=== PATIENT | female | born 1965 | race Hispanic/Latino ===

== ENCOUNTER → 2018-10-02 | Day surgery (SDC) | payer BC ==
[~2018-10-02] MED LIST: FENTANYL CITRATE/PF 100MCG/2 ML INJ ONE; HYOSCYAMINE SULFATE 0.5 MG/ML INJ ONE; MIDAZOLAM HCL 2 MG/2 ML VIAL ONE; PROPOFOL IV EMULSION 10 MG/ML 50 ML VIAL ONE
--- OUTSIDE RECORDS SUMMARY | 2018-10-02 07:14 | XMS REPORT | Encounter Summary ---
Author Organization Unknown Address [address] [place] [address] Phone [phone] Reason for Visit Medical Complaint Instructions 1. Dysuria painful urination (dysuria): care instructions urinalysis, dipstick culture, urine phenazopyridine 200 mg tablet sulfamethoxazole 800 mg-trimethoprim 160 mg tablet Discussion Note Pt is in NAD; Verbalizes understanding of all instructions with no questions at this time. Plan of Care Patient Instructions Recommend proper hydration and frequent urination. Avoid douching, Recommend urinating after sexual intercourse. Recommend wipe front to back after urinating. Avoid using tubs. Take medications as prescribed. Return to clinic or follow up with your PCP within 2-3 days if symptoms worsen as discussed. Reminders Provider Appointments None recorded. Lab Urinalysis, Dipstick 10/02/2017 [facility] Culture, Urine 10/02/2017 [facility] Referral None recorded. Procedures None recorded. Surgeries None recorded. Imaging None recorded. Medications Name Start Date phenazopyridine 200 mg tablet Take 1 tablet 3 times a day by oral route as needed for dysuria for 2 days. for pain and discomfort sulfamethoxazole 800 mg-trimethoprim 160 mg tablet Take 1 tablet every 12 hours by oral route as directed for 5 days. Medications Administered None recorded. Vitals Height Weight BMI Blood Pressure 5 ft 7 in 147 lbs 23 kg/m2 110/70 mm[Hg] Lab Results Date Name Specimen Result Interpretation Description Value Range Status Address Urinalysis, Dipstick Color : Yellow [facility]: [address] [place] [address] Clarity : Clear [facility]: [address] [place] [address] Leukocytes : Negative [facility]: [address] [place] [address] Nitrites : Negative [facility]: [address] [place] [address] Urobilinogen : Normal [facility]: [address] [place] [address] Protein : Negative [facility]: [address] [place] [address] Ph : 6.5 [facility]: [address] [place] [address] Blood : Negative [facility]: [address] [place] [address] Specific [place] : 1.000 [facility]: [facility] Ketones : Negative [facility]: [facility] Bilirubin : Negative [facility]: [facility] Glucose Negative [facility]: 9 [facility] Allergies Code Code System Name Reaction Severity Status Onset NKDA Problems Name Status Onset Date Source Urinary Tract Infectious Disease Active Encounter Sciatica Active Encounter Procedures Date Name Performed by 08/20/2008 Hysterectomy Information not available Tubal Ligation Information not available Vaccine List None recorded. 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 History of Present Illness [id number] Reported By: Patient HPI: Location: urethra. Quality: pain. Severity: worsening, moderate. Duration: constant. Onset/Timing: worse, gradual. Context: no known exposure to STD, no prior history of STDs, sexually active, LMPhysterectomy, heterosexual, vaginal intercourse, history of urine cultures/antibiotic treatment, wipes anterior to posterior, voids after intercourse. Modifying factors nothing makes it worse. Associated Symptoms: no fever/chills, no flank pain, no jaundice, no blood in the urine, no vaginal discharge, no urgency, no blisters on genitals, no rash on genitals, no muscle aches, no headache, pain during urination, urinary frequency Review of Systems:ROS as noted in the HPI Review of Systems Basic Reported By: Patient Physical Exam Adult Basic, Adult Female Complete Reported By: Patient Constitutional: General Appearance: healthy-appearing, well-nourished, well-developed. Level of Distress: NAD. Ambulation: ambulating normally Psychiatric: Mental Status: active and alert. Orientation: to time, to place, to person Eyes: Lids and Conjunctivae: non-injected, no pallor; no periorbital edema Neck: Neck: supple. Lymph Nodes: no cervical LAD Lungs: Respiratory effort: no dyspnea, no tachypnea, no use of accessory muscles, no intercostal retractions. Auscultation: breath sounds normal Cardiovascular: Heart Auscultation: RRR, no murmurs Musculoskeletal:: Extremities: no edema Neurologic: Gait and Station: normal gait Abdomen: Bowel Sounds: normal. Inspection and Palpation: soft, non-distended, no tenderness, no guarding, no rebound tenderness, no masses, no CVA tenderness. Liver: non-tender, no hepatomegaly. Spleen: non-tender, no splenomegaly. Hernia: none palpable
--- OUTSIDE RECORDS SUMMARY | 2018-10-02 07:14 | XMS REPORT | Encounter Summary ---
Author Organization Unknown Address [address] [place] [address] Phone [phone] Reason for Visit Medical Complaint Instructions 1. Urinary tract infectious disease urinary tract infection in women: care instructions Bactrim DS 800 mg-160 mg tablet culture, urine urinalysis, dipstick 2. Immunization due Discussion Note: None recorded. Plan of Care Patient Instructions Drink plenty of water and wear cotton underwear. Please finish all antibiotics, even if you are feeling better. This prevents the infection from coming back. Please seek care or return to [facility] if symptoms do not resolve in 1 week. Reminders Provider Appointments None recorded. Lab Culture, Urine 08/15/2018 [facility] Urinalysis, Dipstick 08/15/2018 [facility] Referral None recorded. Procedures None recorded. Surgeries None recorded. Imaging None recorded. Medications Name Start Date Bactrim DS 800 mg-160 mg tablet Take 1 tablet twice a day by oral route for 5 days. Medications Administered None recorded. Vitals Height Weight BMI Blood Pressure 5 ft 7 in 150 lbs 23.5 kg/m2 110/70 mm[Hg] Lab Results Date Name Specimen Result Interpretation Description Value Range Status Address Urinalysis, Dipstick Color : Yellow [facility]: [address] [place] [address] Clarity : Clear [facility]: [address] [place] [address] Leukocytes : Trace [facility]: [address] [place] [address] Nitrites : Positive [facility]: [address] [place] [address] Urobilinogen : Normal [facility]: [address] [place] [address] Protein : Trace [facility]: [address] [place] [address] Ph : 5.0 [facility]: [address] [place] [address] Blood : Hemolyzed Trace [facility]: [address] [place] [address] Specific [place] : 1.015 [facility]: [address] [place] [address] Ketones : Negative [facility]: [address] [place] [address] Bilirubin : Negative [facility]: [address] [place] [address] Glucose Negative [facility]: [address] [place] [address] Allergies Code Code System Name Reaction Severity Status Onset NKDA Problems Name Status Onset Date Source Sciatica Active Encounter Procedures Date Name Performed by 08/20/2008 Hysterectomy Information not available Tubal Ligation Information not available Vaccine List None recorded. 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 History of Present Illness [id number] Reported By: Patient HPI: Duration: started 4 days. Onset/Timing: worse. Context: no known exposure to STD, no prior history of STDs, sexually active. Associated Symptoms: no fever/chills, no flank pain, no jaundice, no blood in the urine, no vaginal discharge, no blisters on genitals, no rash on genitals, pain during urination, burning sensation during urination, urgency, hesitancy, urinary frequency, feeling of incomplete emptying of bladder Review of Systems:ROS as noted in the HPI Review of Systems Basic Reported By: Patient Physical Exam Adult Basic, Adult Female Complete, 14-21 Yr Females Reported By: Patient Constitutional: General Appearance: healthy-appearing, well-nourished, well-developed. Level of Distress: NAD. Ambulation: ambulating normally Lungs: Respiratory effort: no dyspnea, no tachypnea, no use of accessory muscles, no intercostal retractions. Auscultation: breath sounds normal, clear to auscultation, no wheezing, no rales/crackles, no rhonchi, no retractions Cardiovascular: Heart Auscultation: RRR, no murmurs, no gallops, no rub, normal femoral pulse. Rate and rhythm: regular Abdomen: Bowel Sounds: normal. Inspection and Palpation: soft, non-distended, no tenderness, no guarding, no rebound tenderness, no masses, no CVA tenderness. Liver: non-tender, no hepatomegaly. Spleen: non-tender, no splenomegaly. Hernia: none palpable. Palpation: (normal) bowel sounds
--- OUTSIDE RECORDS SUMMARY | 2018-10-02 07:14 | XMS REPORT | Encounter Summary ---
Author Organization Unknown Address [address] [place] [address] Phone [phone] Reason for Visit Medical Complaint Instructions 1. Urinary tract infectious disease urinalysis, dipstick urinary tract infection in women: care instructions Bactrim DS 800 mg-160 mg tablet culture, urine 2. Blood in urine blood in the urine: care instructions Discussion Note Pt is in NAD; Verbalizes understanding of all instructions with no questions at this time. Plan of Care Patient Instructions Recommend proper hydration and frequent urination. Avoid douching, Recommend urinating after sexual intercourse. Recommend wipe front to back after urinating. Avoid using tubs. Take medications as prescribed. Follow up with your PCP or urologist within 2-3 days if symptoms worsen as discussed or if recurrence. In case of an emergency call 911 or go to nearest ER. Reminders Provider Appointments None recorded. Lab Urinalysis, Dipstick 04/08/2018 [facility] Culture, Urine 04/08/2018 [facility] Referral None recorded. Procedures None recorded. Surgeries None recorded. Imaging None recorded. Medications Name Start Date Bactrim DS 800 mg-160 mg tablet Take 1 tablet every 12 hours by oral route as directed for 7 days. Medications Administered None recorded. Vitals Height Weight BMI Blood Pressure 5 ft 7 in 140 lbs 21.9 kg/m2 110/68 mm[Hg] Lab Results Date Name Specimen Result Interpretation Description Value Range Status Address 04/08/2018 Urinalysis, Dipstick Color : Yellow [facility]: [address] [place] [address] Clarity : Clear [facility]: [address] [place] [address] Leukocytes : Small [facility]: [address] [place] [address] Nitrites : Negative [facility]: [address] [place] [address] Urobilinogen : Normal [facility]: [address] [place] [address] Protein : Negative [facility]: [address] [place] [address] Ph : 5.0 [facility]: [address] [place] [address] Blood : Moderate [facility]: [address] [place] [address] Specific [place] : 1.025 [facility]: [facility] Ketones : Negative [facility]: [facility] Bilirubin : Negative [facility]: 9 [facility] Glucose Negative [facility]: [facility] Allergies Code Code System Name Reaction Severity Status Onset NKDA Problems Name Status Onset Date Source Blood in Urine Active 04/08/2018 Urinary Tract Infectious Disease Active Encounter Sciatica Active Encounter Procedures Date Name Performed by 08/20/2008 Hysterectomy Information not available Tubal Ligation Information not available Vaccine List None recorded. Social History Smoking Status Never Smoker Past Encounters 04/08/2018 Urinary Tract Infectious Disease; Blood in Urine Nirali Sanchez, [facility]-C: [address] [place] [address], Ph. History of Present Illness [id number] Reported By: Patient HPI: Location: abdomen, urethra. Quality: pain, pressure, burning. Severity: worsening, moderate. Duration: constant. Onset/Timing: worse, gradual. Context: no known exposure to STD, no prior history of STDs, sexually active, heterosexual, vaginal intercourse, history of urine cultures/antibiotic treatment, wipes anterior to posterior, voids after intercourse. Modifying factors nothing makes it worse. Associated Symptoms: no fever/chills, no flank pain, no jaundice, no blood in the urine, no vaginal discharge, no blisters on genitals, no rash on genitals, no muscle aches, no headache, pain during urination, burning sensation during urination, urgency, urinary frequency Review of Systems Basic Reported By: Patient Constitutional: Constitutional: no fever Eyes: Eyes: no eye complaints [id number]-Yswzy-Throat: Ears: no ear complaints. Nose: no nose/sinus problems. Mouth/Throat: no sore throat, no bleeding gums, no mouth complaints, no teeth problems Cardiovascular: Cardiovascular: no chest pain, no shortness of breath, no known heart murmur Respiratory: Respiratory: no cough, no wheezing, no shortness of breath Gastrointestinal: Gastrointestinal: no abdominal pain, no vomiting / diarrhea Genitourinary: Genitourinary: no discharge, dysuria, urinary urgency; urinary frequency Musculoskeletal: Musculoskeletal: no muscle aches, no muscle weakness, no arthralgias/joint pain, no back pain Skin: Skin: no abnormal / changing mole, no jaundice, no rashes Neurologic: Neurologic: no loss of consciousness, no weakness, no numbness, no seizures, no dizziness, no headaches Physical Exam Adult Basic, Adult Female Complete [...] normal. Inspection and Palpation: soft, non-distended, no guarding, no rebound tenderness, no masses, no CVA tenderness, suprapubic tenderness. Hernia: none palpable
--- OUTSIDE RECORDS SUMMARY | 2018-10-02 07:14 | XMS REPORT | Continuity of Care Document ---
Author Author Karina victoria [facility] Interface Address Unknown Phone Unavailable Problems Problem Status Onset Date Classification Date Reported Comments Source Immunization due 08/15/2018 Diagnosis 08/15/2018 [facility] Urinary tract infectious disease 08/15/2018 Diagnosis 08/15/2018 [facility] Blood in urine 04/08/2018 Diagnosis 04/08/2018 [facility] Blood in Urine 04/08/2018 Problem 04/08/2018 [facility] Dysuria 10/02/2017 Diagnosis 10/03/2017 [facility] Urinary Tract Infectious Disease Problem 04/08/2018 [facility] Sciatica Problem 08/15/2018 [facility] Medications Medication Details Route Status Patient Instructions Ordering Provider Order Date Source Phenazopyridine hydrochloride 200 MG Oral Tablet phenazopyridine 200 mg tablet Take 1 tablet 3 times a day by oral route as needed for dysuria for 2 days. for pain and discomfort Active [facility] Sulfamethoxazole 800 MG / Trimethoprim 160 MG Oral Tablet sulfamethoxazole 800 mg-trimethoprim 160 mg tablet Take 1 tablet every 12 hours by oral route as directed for 5 days. Active [facility] Sulfamethoxazole 800 MG / Trimethoprim 160 MG Oral Tablet [Bactrim] Bactrim DS 800 mg-160 mg tablet Take 1 tablet twice a day by oral route for 5 days. Active [facility] Allergies, Adverse Reactions, Alerts Substance Category Reaction Severity Reaction type Status Date Reported Comments Source Immunizations Immunization Date Given Site Status Last Updated Comments Source Results Order Name Results Value Reference Range Date Interpretation Comments Source Urinalysis macro (dipstick) panel - Urine COLOR : Yellow 08/15/2018 [facility] Urinalysis macro (dipstick) panel - Urine CLARITY : Clear 08/15/2018 [facility] Urinalysis macro (dipstick) panel - Urine LEUKOCYTES : Trace 08/15/2018 [facility] Urinalysis macro (dipstick) panel - Urine NITRITES : Positive 08/15/2018 [facility] Urinalysis macro (dipstick) panel - Urine UROBILINOGEN : Normal 08/15/2018 [facility] Urinalysis macro (dipstick) panel - Urine PROTEIN : Trace 08/15/2018 [facility] Urinalysis macro (dipstick) panel - Urine pH : 5.0 08/15/2018 [facility] Urinalysis macro (dipstick) panel - Urine BLOOD : Hemolyzed Trace 08/15/2018 [facility] Urinalysis macro (dipstick) panel - Urine SPECIFIC GRAVITY : 1.015 08/15/2018 [facility] Urinalysis macro (dipstick) panel - Urine KETONES : Negative 08/15/2018 [facility] Urinalysis macro (dipstick) panel - Urine BILIRUBIN : Negative 08/15/2018 [facility] Urinalysis macro (dipstick) panel - Urine GLUCOSE Negative 08/15/2018 [facility] Urinalysis macro (dipstick) panel - Urine COLOR : Yellow 04/08/2018 [facility] Urinalysis macro (dipstick) panel - Urine CLARITY : Clear 04/08/2018 [facility] Urinalysis macro (dipstick) panel - Urine LEUKOCYTES : Small 04/08/2018 [facility] Urinalysis macro (dipstick) panel - Urine NITRITES : Negative 04/08/2018 [facility] Urinalysis macro (dipstick) panel - Urine UROBILINOGEN : Normal 04/08/2018 [facility] Urinalysis macro (dipstick) panel - Urine PROTEIN : Negative 04/08/2018 [facility] Urinalysis macro (dipstick) panel - Urine pH : 5.0 04/08/2018 [facility] Urinalysis macro (dipstick) panel - Urine BLOOD : Moderate 04/08/2018 [facility] Urinalysis macro (dipstick) panel - Urine SPECIFIC GRAVITY : 1.025 04/08/2018 [facility] Urinalysis macro (dipstick) panel - Urine KETONES : Negative 04/08/2018 [facility] Urinalysis macro (dipstick) panel - Urine BILIRUBIN : Negative 04/08/2018 [facility] Urinalysis macro (dipstick) panel - Urine GLUCOSE Negative 04/08/2018 [facility] Urinalysis macro (dipstick) panel - Urine COLOR : Yellow 10/02/2017 [facility] Urinalysis macro (dipstick) panel - Urine CLARITY : Clear 10/02/2017 [facility] Urinalysis macro (dipstick) panel - Urine LEUKOCYTES : Negative 10/02/2017 [facility] Urinalysis macro (dipstick) panel - Urine NITRITES : Negative 10/02/2017 [facility] Urinalysis macro (dipstick) panel - Urine UROBILINOGEN : Normal 10/02/2017 [facility] Urinalysis macro (dipstick) panel - Urine PROTEIN : Negative 10/02/2017 [facility] Urinalysis macro (dipstick) panel - Urine pH : 6.5 10/02/2017 [facility] Urinalysis macro (dipstick) panel - Urine BLOOD : Negative 10/02/2017 [facility] Urinalysis macro (dipstick) panel - Urine SPECIFIC GRAVITY : 1.000 10/02/2017 [facility] Urinalysis macro (dipstick) panel - Urine KETONES : Negative 10/02/2017 [facility] Urinalysis macro (dipstick) panel - Urine BILIRUBIN : Negative 10/02/2017 [facility] Urinalysis macro (dipstick) panel - Urine GLUCOSE Negative 10/02/2017 [facility] Vital Signs Vital Sign Value Date Comments Source Diastolic (mm Hg) 70 08/15/2018 [facility] Height 67 08/15/2018 [facility] Systolic (mm Hg) 110 08/15/2018 [facility] Weight 150 08/15/2018 [facility] Diastolic (mm Hg) 68 04/08/2018 [facility] Height 67 04/08/2018 [facility] Systolic (mm Hg) 110 04/08/2018 [facility] Weight 140 04/08/2018 [facility] Diastolic (mm Hg) 70 10/02/2017 [facility] Height 67 10/02/2017 [facility] Systolic (mm Hg) 110 10/02/2017 [facility] Weight 147 10/02/2017 [facility] Encounters Location Location Details Encounter Type Encounter Number Reason For Visit Attending Provider ADM Date DC Date Status Source [place] - [facility] - [id number] BanksC: [address] [place] [address], Ph. [id number] Nirali Sanchez 10/02/2017 [facility] [place] - [facility] - [id number] Nirali Sanchez, [employer]-C: [address] [place] [address], Ph. 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 [id number] Ghada Lehman 08/15/2018 [facility] Procedures Procedure Code Date Perfomer Comments Source Hysterectomy 08/20/2008 [facility] Tubal Ligation [facility]
[2018-10-02 12:20] VITALS: BP 125/73
--- NOTE | 2018-10-02 13:36 | Operative Report ---
DATE OF PROCEDURE: October 02, 2018 REFERRING PHYSICIAN: Dr. Surjit Becerril PROCEDURES PERFORMED 1. Esophagogastroduodenoscopy with biopsies. 2. Colonoscopy with biopsies and polypectomy. INDICATIONS FOR EGD: Heartburn. INDICATIONS FOR COLONOSCOPY: Colorectal cancer screening and left lower quadrant pain. MEDICATION: Patient was done under MAC. Please see anesthesiologist's note. PROCEDURE: With the patient in the left lateral decubitus position, the flexible fiberoptic Olympus gastroscope was introduced into the esophagus under direct visualization without any difficulty. There was some patchy erythema noted in the distal esophagus. A minute nodule was noted at the GE junction approximately 5 mm that was biopsied. The scope was then advanced with ease into the stomach traversing a small sliding hiatal hernia. Mucosa overlying the antrum and the body revealed some patchy erythema and low-grade to moderate edema, and biopsies were obtained and sent to stain for H. pylori. Some minute polyps were noted in the upper body of the stomach along the greater curvature and were hyperplastic appearing and some were partially excised with the cold biopsy forceps. The pylorus was of normal contour and shape. It was intubated with ease. The scope was advanced all the way to the 2nd portion of the duodenum. The scope was then withdrawn slowly and biopsies were obtained from the proximal 2nd portion and the duodenal bulb to rule out sprue. The scope was then withdrawn back into the stomach and retroflexed. The mucosa overlying the fundus appeared to be within normal limits. The cardia also was within normal limits. The scope was then straightened out. The stomach was decompressed. The scope was subsequently withdrawn. Patient tolerated the procedure well. IMPRESSION 1. Distal esophagitis, mild. 2. Approximately, 5-mm nodule at the gastroesophageal junction, biopsied. 3. Small sliding hiatal hernia. 4. Gastritis, biopsied. Biopsies sent to stain for Helicobacter pylori. 5. Gastric polyps, hyperplastic appearing, upper body, some partially excised with the cold biopsy forceps. 6. Rule out sprue. PLAN: Follow up histology. Initiate Protonix 40 mg 1 p.o. q.a.m. a.c. Patient was then turned around. After adequate lubrication of the anal canal, a flexible fiberoptic Olympus colonoscope was inserted into the rectum with ease and advanced all the way to the cecum. The mucosa overlying the cecum appeared to be within normal limits. The ileocecal was intubated and scope was advanced into the terminal ileum. An approximately 1 cm sessile polypoid lesion was noted in the terminal ileum just beyond the ileocecal valve and that was biopsied. The scope was then withdrawn back into the colon. It was then withdrawn slowly. Mucosa overlying the ascending and the transverse, as well as the descending appeared to be within normal limits. There was some patchy erythema and low-grade edema noted in the sigmoid colon and biopsies were obtained. One polyp was snared from the sigmoid colon. The scope was then withdrawn into the rectum, and one minute polyp was hot biopsied from the rectum. The scope was then retroflexed into the distal rectum and small internal hemorrhoids were noted, none of which was actively bleeding. The scope was then straightened out. It was subsequently withdrawn. Patient tolerated the procedure well. IMPRESSION 1. Approximately, 1 cm sessile polypoid lesion, terminal ileum, biopsied. 2. Sigmoiditis, mild and patchy. 3. Sigmoid colon polyp, snared. 4. Rectal polyp, hot biopsied. 5. Internal hemorrhoids, none actively bleeding. PLAN: Follow up histology. Initiate VSL No. 3 one p.o. daily. Bentyl 10 mg 1 p.o. t.i.d. Patient might benefit from a followup colonoscopy in 3 years. Job#: [id number] RI cc:SURJIT BECERRIL MD
== END | disposition home or self-care (01) ==
LOC: OR 07:12
PROVIDERS: ATTEND Internal Medicine Gastroenterology
DX: K52.9 Noninfective gastroenteritis and colitis, unspecified (principal); K63.5 Polyp of colon; K62.1 Rectal polyp; K31.7 Polyp of stomach and duodenum; K29.50 Unspecified chronic gastritis without bleeding; K20.9 Esophagitis, unspecified; K22.8 Other specified diseases of esophagus; K44.9 Diaphragmatic hernia without obstruction or gangrene; K21.9 Gastro-esophageal reflux disease without esophagitis; K64.8 Other hemorrhoids; Z01.810 Encounter for preprocedural cardiovascular examination; Z91.013 Allergy to seafood; Z86.2 Personal history of diseases of the blood and blood-forming organs and certain disorders involving the immune mechanism
CPT/HCPCS: 43239; 45380; 45384; 45385; 93005; J1980; J2250; J2704; 45378

== ENCOUNTER 2022-11-07 13:48 | Emergency (ER) | payer BC ==
[~2022-11-07] VITALS: Ht 170.2 cm; Wt 68.0 kg
[2022-11-07] MEDS ORDERED: MECLIZINE HCL 12.5 MG TAB PO STA (13:59)
[2022-11-07] MEDS ORDERED: ASPIRIN 325 MG TAB PO ONE (14:00)
[2022-11-07] MEDS ORDERED: ASPIRIN 81 MG CHEW TAB PO ONE (14:00)
[2022-11-07] MEDS ORDERED: SODIUM CHLORIDE 0.9% 1000ML 1,000 ML IV ONE (14:00)
[2022-11-07 14:20] LABS: BASOPHILS % 0.5 % (0.0-1.0); EOSINOPHILS # (AUTO) 0.1 (0.0-0.4); EOSINOPHILS % 1.7 % (0.0-6.0); HEMATOCRIT 42.8 % (34.2-44.1); HEMOGLOBIN 13.7 g/dL (12.0-16.0); LYMPHOCYTES # (AUTO) 2.4 (1.0-3.2); LYMPHOCYTES % 36.6 % (18.0-39.1); MEAN CORPUSCULAR HEMOGLOBIN 29.7 pg (28-32); MEAN CORPUSCULAR VOLUME 92.6 fL (81-99); MONOCYTES # (AUTO) 0.5 (0.2-0.8); MONOCYTES % 7.4 % (4.4-11.3); NEUTROPHILS # (AUTO) 3.6 (2.1-6.9); NEUTROPHILS % 53.6 % (38.7-80.0); PLATELET COUNT 275 x10e3/uL (140-360); RED BLOOD COUNT 4.62 x10e6/uL (3.6-5.1); RED CELL DISTRIBUTION WIDTH 12.4 % (11.7-14.4)
[2022-11-07 14:23] LABS: CLARITY,URINE CLEAR (CLEAR); COLOR,URINE YELLOW (YELLOW); KETONES,URINE NEGATIVE (NEGATIVE); LEUKOCYTE ESTERASE ,URINE NEGATIVE (NEGATIVE); NITRITE,URINE NEGATIVE (NEGATIVE); PROTEIN,URINE DIPSTICK NEGATIVE (NEGATIVE); URINE UROBILINOGEN 0.2 mg/dL (0.2 - 1)
[2022-11-07 14:36] LABS: ALBUMIN 4.2 g/dL (3.5-5.0); ALBUMIN/GLOBULIN RATIO 1.2 (0.8-2.0); ANION GAP 15.8 mmol/L (8-16); CALCIUM 9.7 mg/dL (8.4-10.2); CREATININE, SERUM 0.76 mg/dL (0.57-1.11); POTASSIUM 3.8 mmol/L (3.5-5.1)
[2022-11-07 14:43] LABS: CREATINE KINASE MB 0.6 ng/mL (0-5.0)
[2022-11-07 17:44] VITALS: BP 142/79
== END 2022-11-07 17:42 | disposition home or self-care (01) ==
LOC: ER 13:52
DX: R07.9 Chest pain, unspecified (principal); R42 Dizziness and giddiness; R20.2 Paresthesia of skin
CPT/HCPCS: 36415; 70450; 71045; 80053; 81001; 82550; 82553; 83690; 84484; 85025; 93005; 99284; J7030; J8597